=== PATIENT | female | born 1975 | race Caucasian/White ===

== ENCOUNTER 2016-10-17 13:34 | Emergency (ER) | payer OTHER ==
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
[2016-10-17] MEDS ORDERED: LET GEL TOPICAL 1 EA SYR TP ONE (14:14)
[2016-10-17 15:52] VITALS: BP 92/62; PULSE 60; RESP 18; TEMP 98.4; O2SAT 96
== END 2016-10-17 15:52 | disposition home or self-care (01) ==
DX: S09.90XA Unspecified injury of head, initial encounter (principal); S50.312A Abrasion of left elbow, initial encounter; S50.311A Abrasion of right elbow, initial encounter; V18.0XXA Pedal cycle driver injured in noncollision transport accident in nontraffic accident, initial encounter; Y92.410 Unspecified street and highway as the place of occurrence of the external cause; Y99.8 Other external cause status; Y93.55 Activity, bike riding